=== PATIENT | male | born 1955 | race African-American/Black ===

== ENCOUNTER 2019-01-22 13:20 | Emergency (ER) | payer MEDICARE ==
[~2019-01-22] VITALS: Ht 182.9 cm; Wt 91.0 kg
[2019-01-22] MEDS ORDERED: NALOXONE HCL 1 MG/ML 2ML VIAL ONE (13:25)
[2019-01-22] MEDS ORDERED: SUCCINYLCHOLINE CHLORIDE 200MG/10ML IV ONE ×2 (13:30→13:45)
[2019-01-22] MEDS ORDERED: ETOMIDATE 2MG/ML 10ML VIAL IV ONE ×2 (13:30→13:45)
[2019-01-22] MEDS ORDERED: NALOXONE HCL 1 MG/ML 2ML VIAL IV ONE (13:45)
[2019-01-22] MEDS ORDERED: PROPOFOL 10MG/ML 100ML 100 ML IV SCH (13:45)
[2019-01-22 13:55] LABS: BASOPHILS % 1.3 % (0.0-2.0); EOSINOPHILS % 0.6 % (0.0-5.0); HEMATOCRIT. 46.5 % (42.0-52.0); LYMPHOCYTES % 40.2 % (20.0-50.0); MEAN CORPUSCULAR HEMOGLOBIN 29.7 pg (28.0-32.0); MEAN CORPUSCULAR VOLUME 91.8 fL (80.0-94.0); MONOCYTES % 6.4 % (2.0-8.0); NEUTROPHILS % 51.5 % (40.0-76.0); PLATELET 268 x1000/uL (130-400); RED BLOOD CELL COUNT 5.06 mill/uL (4.7-6.1); RED CELL DISTRIBUTION WIDTH 15.9 % (11.6-14.6)
[2019-01-22 14:00] LABS: CHLORIDE 105 mEq/L (98-107); PROTHROMBIN TIME 10.3 sec (9.6-11.0)
[2019-01-22] MEDS ORDERED: MANNITOL 12.5G (25%) VIAL 50ML IV ONE (14:30)
[2019-01-22] MEDS ORDERED: NICARDIPINE 40MG/200ML PREMIX 200 ML IV SCH (14:30)
[2019-01-22] MEDS ORDERED: DEXAMETHASONE 4MG/ML 1ML VIAL IV ONE (14:30)
[2019-01-22] MEDS ORDERED: SODIUM CHLORIDE 0.9% 1,000 ML IV ONE (14:45)
[2019-01-22] MEDS ORDERED: LEVETIRACETAM 1000MG/100ML 100 ML IV ONE ×3 (14:45→15:15)
[2019-01-22 15:07] LABS: BG CARBOXYHEMOGLOBIN 2.7 % (0.5-1.5); BG DEOXYHEMOGLOBIN 0.1 % (0.0-5.0); BG FRACTION INSPIRED OXYGEN 100; BG HCO3 ACT 30.4 mmol/L (22.0-26.0); BG METHEMOGLOBIN 0.3 % (0.0-1.5); BG OXYGEN SATURATION 99.9 % (92.0-98.5); BG OXYHEMOGLOBIN 96.9 % (94.0-97.0); BG PCO2 58.5 mmHg (35.0-45.0); BG PH 7.334 (7.350-7.450); BG PO2 560.6 mmHg (75.0-100.0); BG SAMPLE SITE RIGHT RADIAL; BG TIDAL VOLUME(mL) 500 mL; BG TOTAL HEMOGLOBIN 14.6 g/dL (12.0-18.0); BG VENT MODE VENT - A/C; BG VENT RATE 22 set
[2019-01-22 15:47] VITALS: BP 105/50
[2019-01-22 16:00] LABS: CLARITY URINE CLEAR (CLEAR); COLOR URINE YELLOW (YELLOW); KETONES URINE NEGATIVE (NEGATIVE); LEUKOCYTE ESTERASE URINE NEGATIVE (NEGATIVE); NITRITE URINE NEGATIVE (NEGATIVE); OCCULT BLOOD URINE 3+ (NEGATIVE); PROTEIN URINE 3+ (NEGATIVE); SPECIFIC GRAVITY URINE 1.014 (1.005-1.030); UROBILINOGEN URINE 0.2 E.U./dL (0.2-1.0)
== END 2019-01-22 16:46 | disposition short-term general hospital (02) ==
LOC: ER 13:20 → EDBEDREQ 13:38 → CANBEDREQ 15:42 → ER 16:46
DX: I62.9 Nontraumatic intracranial hemorrhage, unspecified (principal); G93.40 Encephalopathy, unspecified; J96.90 Respiratory failure, unspecified, unspecified whether with hypoxia or hypercapnia; I16.0 Hypertensive urgency
CPT/HCPCS: 31500; 36415; 36600; 70450; 71045; 80053; 81003; 82375; 82805; 82962; 84484; 85025; 85610; 87040; 93005; 94002; 96365; 96375; 99291; J0330; J1100; J1953; J2150; J2310; J2704; J3490; J7030; A4315